=== PATIENT | male | born 1985 | race Two or more races ===

== ENCOUNTER 2021-11-30 11:06 | Inpatient (IN) | payer OTHER, SELFPAY ==
[2021-11-30] VITALS (8 sets, daily range): BP systolic 115–153; BP diastolic 63–94; PULSE 55–87; RESP 16–20; TEMP 36.4–37.1; O2SAT 95–100; BMI 17.3
--- NOTE | ~2021-11-30 | CT_ITS ---
EXAMINATION: CT ABDOMEN AND PELVIS WITH CONTRAST CLINICAL INFORMATION: 36-year-old male with abdominal pain. COMPARISON: None TECHNIQUE: Multidetector volumetric images were obtained from the superior aspect of the liver through the pubic symphysis following administration 85 mL of Omnipaque 350 intravenous contrast. Sagittal and coronal reformatted images were obtained on the technologist's workstation. This CT examination was performed using dose optimization techniques as appropriate, variously including the following: *Automated exposure control *Adjustment of mA and/or kV according to patient size (this includes techniques or standardized protocols for targeted exams where dose is matched to indication/reason for exam; i.e. extremities or head) *Use of iterative reconstruction technique DLP: 183 mGy-cm FINDINGS: Visualized lung bases are well aerated. The liver demonstrates normal size, contour and attenuation. The gallbladder is normal in appearance. The pancreas, spleen and adrenal glands are unremarkable. Prominent single left kidney without hydronephrosis. A right kidney is not visualized. Normal caliber loops of small bowel. The colon is relatively decompressed but demonstrates diffuse circumferential mucosal thickening throughout. Mild colonic diverticulosis also noted. Normal caliber abdominal aorta. No retroperitoneal lymphadenopathy. The bladder is normal in appearance. Normal-sized prostate gland. No gross free pelvic fluid. No inguinal lymphadenopathy. No acute osseous abnormality. CT/CT abdomen pelvis w con IMPRESSION: -Diffuse mucosal thickening of the colon. Findings are nonspecific but most suggestive of colitis, likely infectious or inflammatory. Clinical correlation recommended. -Solitary left kidney. No hydronephrosis. Fleischner guidelines were followed.
--- NOTE | 2021-11-30 11:27 | ED_ITS ---
HPI - Nausea/Vomiting/Diarrhea General Chief complaint: Abdominal Pain Stated complaint: abdominal pain Time Seen by Provider: 11/30/21 11:15 Source: patient Mode of arrival: EMS Limitations: no limitations History of Present Illness MD elicited complaint: nausea and vomiting Onset (ago): hour(s) (5) Description of vomiting: watery Description of diarrhea: watery Associated nausea: Yes Associated abdominal pain: Yes Location of pain: diffuse Pain consistency: constant Quality: cramping Related Data Allergies Allergy/AdvReac Type Severity Reaction Status Date / Time No Known Allergies Allergy Verified 11/30/21 11:24 Review of Systems Verdana 4l Review of Systems: Yes all other systems are reviewed and Verdana 4d are negative Verdana 4l Cardiovascular: Verdana 4d Cardiovascular: Verdana 4d Verdana 4d Reports no additional cardiovascular complaints Verdana 4l Gastrointestinal: Verdana 4d Gastrointestinal: Verdana 4d Verdana 4d Reports abdominal pain and Reports nausea Verdana 4l Neurologic: Verdana 4d Reports system reviewed and no additional complaints, except as documented PMF Social History Social History Advance Directives: No Advance Directives Information Provided: No Physical Exam Verdana 4l Vital Signs: Verdana 4d Verdana 4d Vital Signs: Verdana 4d Verdana 4Bd Last Vital Signs Verdana 4d Configuration Management Advisor New 4d Configuration Management Advisor New 4d Temp 97.7 F 11/30/21 16:10 Configuration Management Advisor New 4d Pulse 71 11/30/21 16:10 Configuration Management Advisor New 4d Resp 16 11/30/21 16:10 BP 134/94 H 11/30/21 16:10 Pulse Ox 95 11/30/21 16:10 BMI result Body Mass Index 17.3 Const: General: alert and acute distress mild Orientation/consciousness: patient oriented x3 HENMT: Head: Yes normal to inspection Face and sinus: Yes normal facial exam Mouth: Normal oral and palatal mucosa present Throat: Yes posterior oropharynx normal Neck: Neck: Yes normal visual inspection Thyroid: Thyroid normal Chest: Chest palpation & inspection: normal inspection of the chest Resp: Effort & Inspection: normal respiratory effort Auscultation: clear to auscultation bilaterally Cardio: Jugular venous distension: no JVD Rate: regular rate Rhythm: regular rhy thm GI: Inspection: Yes normal to inspection Palpation (GI): Soft to palpation, not firm, nontender and no guarding Skin: General skin exam: no rashes or lesions noted, elasticity normal and turgor normal Rashes: no rashes Neuro: General: patient oriented x3 Course Reevaluation(s) Reevaluation #1: BETTER CT SHOWED COLITIS WILL ADMIT FOR OBS MDM - Nausea/Vomiting/Diarrhea Lab Data Result diagrams: 11/30/21 11:32 11/30/21 11:32 Labs: Lab Results 11/30/21 11/30/21 Range/Units 11:32 11:32 WBC 24.9 H (4.8-10.8) X10*3/uL RBC 5.29 (4.60-5.80) X10*6/uL Hgb 17.4 (14.0-18.0) g/dl Hct 51.2 (42.0-52.0) % MCV 96.8 (80.0-98.0) fL MCH 32.9 (27.0-33.0) pg MCHC 34.0 (31.0-36.0) g/dl RDW 12.4 (11.0-16.0) % Plt Count 328 (160-400) X10*3/uL MPV 11.1 (9.4-12.4) fL Immature Gran % (Auto) 0.9 H (0.0-0.4) % Neut % (Auto) 85.0 H (45-73) % Lymph % (Auto) 8.6 L (20-40) % Ransom % (Auto) 4.9 (2-11) % Eos % (Auto) 0.3 (0-4) % Baso % (Auto) 0.3 (0-2) % Lymph # (Auto) 2.1 (1.2-4.9) X10*3/uL Ransom # (Auto) 1.2 (0.1-1.2) X10*3/uL Eos # (Auto) 0.1 (0.0-0.4) X10*3/uL Baso # (Auto) 0.1 (0.0-0.2) X10*3/uL Abs Immat Gran (auto) 0.22 H (0.00-0.03) X10*3/uL Absolute Neuts (auto) 21.2 H (2.0-8.3) x10*3/uL Absolute Nucleated RBC 0.000 (0.0-0.012) X10*3/uL Nucleated RBC % (auto) 0.0 (0.0-0.2) /100WBC Smear Tech's Comments VERIFIED Sodium 144 (135-145) mmol/L Potassium 4.2 (3.3-5.1) mmol/L Chloride 105 (96-108) mmol/L Carbon Dioxide 26 (22-29) mmol/L Anion Gap 17 (12-20) BUN 15 (9-16) mg/dL Creatinine 0.91 (0.5-1.4) mg/dL Estim Creat Clear Calc 57.0 Estimated GFR > 60 Random Glucose 116 H (60-115) mg/dL Calcium 10.7 H (8.4-10.2) mg/dL Total Bilirubin 0.4 (0.0-1.0) mg/dL AST 32 (5-37) U/L ALT 27 (0-40) U/L Alkaline Phosphatase 79 (39-117) U/L Total Protein 8.0 (6.5-8.0) g/dL Albumin 4.8 (3.5-5.0) g/dL Lipase 119 H (8-78) U/L Imaging Data CT scan - abdomen: Radiologist's impression: FINDINGS: There is no intracranial hemorrhage, hematoma, or extra-axial fluid collection.? The ventricles are normal in size. There is no hydrocephalus, edema, or mass effect.? The fuentes-white matter differentiation appears symmetric. There is no acute infarct or mass lesion. An old left basal ganglia infarct is noted. The calvarium appears intact. There is no pneumocephalus or orbital emphysema.? The visualized sinuses and middle ears and mastoid air cells show no significant mucosal thickening. There are no air-fluid levels. CT/CT head for stroke IMPRESSION: No acute intracranial pathology. ? This critical result was discussed with Dr. Sanchez at 2:17 PM hours on 11/30/2021. It was ascertained that the content and urgency of the report was understood at the time of direct communication. Dictated By: PHYLLIS MORA MD Signed By: <Electronically signed by PHYLLIS MORA MD in OV> 11/30/21 1422 DD/ [id number] Discharge Plan Discharge Clinical Impression: Abdominal pain, Vomiting Patient Disposition: Admitted As Inpatient
[2021-11-30] MEDS: 0.9 % Sodium Chloride 1,000 ML 999 ML IVCONT (11:35)
[2021-11-30] MEDS: LORazepam 2 MG/ML VIAL 1 MG IVPUSH (11:36)
[2021-11-30] MEDS: Metoclopramide HCl 10 MG/2 ML VIAL IVPUSH (11:36)
[2021-11-30 11:46] LABS: Basophils Absolute Auto 0.1 X10*3/uL (0.0-0.2); Basophils Percent Auto 0.3 % (0-2); Eosinophils Absolute Auto 0.1 X10*3/uL (0.0-0.4); Eosinophils Percent Auto 0.3 % (0-4); Hematocrit 51.2 % (42.0-52.0); Hemoglobin 17.4 g/dl (14.0-18.0); Imm Gran Abs Auto 0.22 X10*3/uL (0.00-0.03); Imm Gran Pct Auto 0.9 % (0.0-0.4); Lymphocytes Absolute Auto 2.1 X10*3/uL (1.2-4.9); Lymphocytes Percent Auto 8.6 % (20-40); MANUAL DIFF FLAG SCAN; Mean Corpuscular Hemoglobin 32.9 pg (27.0-33.0); Mean Corpuscular Volume 96.8 fL (80.0-98.0); Mean Platelet Volume 11.1 fL (9.4-12.4); Monocytes Absolute Auto 1.2 X10*3/uL (0.1-1.2); Monocytes Percent Auto 4.9 % (2-11); Neutrophils Absolute Auto 21.2 x10*3/uL (2.0-8.3); Platelet Count 328 X10*3/uL (160-400); Red Blood Count 5.29 X10*6/uL (4.60-5.80); Red Cell Distribution Width 12.4 % (11.0-16.0); SCAN SMEAR FLAG 1; White Blood Count 24.9 X10*3/uL (4.8-10.8)
[2021-11-30] MEDS: diphenhydrAMINE HCL 50 MG/ML VIAL 25 MG IVPUSH (11:47)
[2021-11-30 12:10] LABS: Alanine Aminotransferase 27 U/L (0-40); Albumin Level 4.8 g/dL (3.5-5.0); Alkaline Phosphatase 79 U/L (39-117); Anion Gap 17 (12-20); Aspartate Amino Transferase 32 U/L (5-37); Bilirubin Total 0.4 mg/dL (0.0-1.0); Blood Urea Nitrogen 15 mg/dL (9-16); Calcium 10.7 mg/dL (8.4-10.2); Carbon Dioxide 26 mmol/L (22-29); Chloride 105 mmol/L (96-108); Estimated Glomerular Filt Rate > 60; Glucose Random 116 mg/dL (60-115); Lipase 119 U/L (8-78); Potassium 4.2 mmol/L (3.3-5.1); Sodium 144 mmol/L (135-145)
[2021-11-30 12:13] LABS: SLIDE REVIEW VERIFIED
[2021-11-30] MEDS: iohexoL 350 MG/ML 100 ML INFUS..BTL IV (14:55)
[2021-11-30] MEDS: levoFLOXacin/D5W 500 MG/100 ML PIGGYBACK 100 MG IV (16:17)
[2021-11-30] MEDS: 0.9 % Sodium Chloride 1,000 ML 100 ML IVCONT (16:18)
--- NOTE | 2021-11-30 17:01 | P.HPHOSP_ITS ---
History of Present Illness Date of Service: 11/30/21 Chief Complaint: Abdominal pain A 36 years old male coming to the hospital with reported abdominal pain that started 2 days ago and worsened today which is constant, mainly periumbilical, associated with nausea and vomiting but no change in bowel habit. Feeling a lot of chills but did not check his fever. He reports similar episode few years ago that was treated with antibiotics. CT scan the emergency was significant for colitis. Admitted for further eval uation and treatment. Review of Systems Verdana 4l Review of Systems: Verdana 4d Reporting chills and Verdana 4d weakness No chest pain, palpitation No shortness of breath or coughing Abdominal pain associated with nausea or vomiting No urinary symptoms No any rash or wounds Verdana 4d PMFSH Social History Advance Directives: No Advance Directives Information Provided: No Meds Allergies Allergy/AdvReac Type Severity Reaction Status Date / Time No Known Allergies Allergy Verified 11/30/21 11:24 Active Medications: Current Medications Levofloxacin (Levaquin) 500 mg in 100 mls @ 100 mls/hr IV ONCE ONE Stop: 11/30/21 17:09 Last Admin: 11/30/21 16:17 Dose: 100 mls/hr Documented by: Home Medications Medication Instructions Recorded Confirmed Last Taken Type bupropion HCl 1 tab PO BID 11/30/21 11/30/21 Unknown History (smoking deter) 150 mg tablet,12 hr sustained-release (smoking deterrent) mirtazapine 30 mg 1 tab PO BEDTIME 11/30/21 11/30/21 Unknown History tablet Physical Exam Verdana 4l Vital Signs and Narrative: Verdana 4d Verdana 4d Vital Signs: Verdana 4d Verdana 4Bd Last Vital Signs Verdana 4d Chocolatier New 4d Chocolatier New 4d Temp 97.7 F 11/30/21 16:10 Chocolatier New 4d Pulse 71 11/30/21 16:10 Chocolatier New 4d Resp 16 11/30/21 16:10 BP 134/94 H 11/30/21 16:10 Pulse Ox 95 11/30/21 16:10 BMI result Body Mass Index 17.3 Const: Other: Constitutional : Alert, oriented, in mild distress Neck : Normal inspection, Supple Cardiovascular : RRR, S1 S2, no lower extremity edema Respiratory : Good bilateral air entry, no crackles, wheezes or rhonchi Gastrointestinal: soft, guardian, decrease bowel sounds, generalized tenderness with no surgical signs Skin : Warm, Dry Neurological : Alert & oriented x3, No focal deficit Results Labs CBC and Chem 7: 11/30/21 11:32 11/30/21 11:32 Labs: Laboratory Results - last 24 hr 11/30/21 11/30/21 11:32 11:32 MCV 96.8 MCH 32.9 MCHC 34.0 RDW 12.4 Plt Count 328 MPV 11.1 Immature Gran % (Auto) 0.9 H Neut % (Auto) 85.0 H Lymph % (Auto) 8.6 L Dade % (Auto) 4.9 Eos % (Auto) 0.3 Baso % (Auto) 0.3 Lymph # (Auto) 2.1 Dade # (Auto) 1.2 Eos # (Auto) 0.1 Baso # (Auto) 0.1 Abs Immat Gran (auto) 0.22 H Absolute Neuts (auto) 21.2 H Absolute Nucleated RBC 0.000 Nucleated RBC % (auto) 0.0 Smear Tech's Comments VERIFIED Anion Gap 17 Estim Creat Clear Calc 57.0 Estimated GFR > 60 Random Glucose 116 H Calcium 10.7 H Total Bilirubin 0.4 AST 32 ALT 27 Alkaline Phosphatase 79 Total Protein 8.0 Albumin 4.8 Lipase 119 H Imaging Radiologist's Impressions: Impressions Abdomen/Pelvis CT 11/30/21 15:04 IMPRESSION: -Diffuse mucosal thickening of the colon. Findings are nonspecific but most suggestive of colitis, likely infectious or inflammatory. Clinical correlation recommended. -Solitary left kidney. No hydronephrosis. Fleischner guidelines were followed. Assessment and Plan (1) Abdominal pain: Status: Acute (2) Colitis: Status: Acute Plan A 34 years old lady with PMH of drug abuse, anorexia nervosa, depression, post ileostomy who started to complain of abdominal pain today. Colitis Seems infectious in etiology Pending blood culture Start gentle hydration Start IV Levaquin Start with clear liquids History of anxiety Continue mirtazapine and bupropion DVT PPX Lovenox Quality Stroke Does the patient have a stroke diagnosis?: No VTE Prior VTE?: No VTE Risk Level:: Medical - moderate - high VTE Device Contraindication: Treatment Not Indicated VTE Drug Contraindication: N/A - Med Ordered
[2021-11-30] MEDS: Lactated Ringers 1,000 ML 100 ML IVCONT (17:31)
[2021-11-30] MEDS: Enoxaparin Sodium 40 MG/0.4 ML SYRINGE SUBCUT (17:31)
--- NOTE | 2021-11-30 21:14 | PHA.MEDREC ---
Pharmacy Consult ? Medication Reconciliation Pharmacy has completed the medication reconciliation. Spoke with pt
[2021-11-30] MEDS: Mirtazapine 30 MG TABLET PO (22:18)
[2021-12-01] VITALS: RESP 16
[2021-12-01] MEDS: Lactated Ringers 1,000 ML 100 ML IVCONT (04:07)
[2021-12-01 06:00] VITALS: RESP 16
[2021-12-01 06:51] LABS: Hematocrit 44.3 % (42.0-52.0); Hemoglobin 15.1 g/dl (14.0-18.0); Mean Corpuscular HGB Conc 34.1 g/dl (31.0-36.0); Mean Corpuscular Hemoglobin 32.9 pg (27.0-33.0); Mean Corpuscular Volume 96.5 fL (80.0-98.0); Platelet Count 231 X10*3/uL (160-400); Red Blood Count 4.59 X10*6/uL (4.60-5.80); Red Cell Distribution Width 12.6 % (11.0-16.0); White Blood Count 14.7 X10*3/uL (4.8-10.8)
[2021-12-01 07:23] LABS: Anion Gap 12 (12-20); Blood Urea Nitrogen 12 mg/dL (9-16); Calcium 9.6 mg/dL (8.4-10.2); Carbon Dioxide 27 mmol/L (22-29); Chloride 107 mmol/L (96-108); Creatinine Clr Calc Pharmacy 58.9; Estimated Glomerular Filt Rate > 60; Glucose Random 88 mg/dL (60-115); Potassium 4.2 mmol/L (3.3-5.1); Sodium 142 mmol/L (135-145)
[2021-12-01 08:31] VITALS: BP 109/63; PULSE 60; O2SAT 97
[2021-12-01] MEDS: buPROPion HCl XL 150 MG TAB.ER.24H PO (08:32)
[2021-12-01] MEDS: 0.9 % Sodium Chloride Flush 3 ML SYRINGE IVFLUSH (08:33)
--- NOTE | 2021-12-01 11:05 | PC.NURSE ---
pt sleeping, respirations even and unlabored, skin appropriate for ethnicity no vomiting/diarrhea all morning. pt awaiting room assignment
--- NOTE | 2021-12-01 11:19 | P.PNIM_ITS ---
Subjective Subjective Date of Service: 12/01/21 Interval History: the patient was seen and evaluated this morning Laying in bed, feels much better than yesterday Significantly decreased abdominal pain and nausea No reported other overnight events. Systemic review: No fever, chills or weakness No chest pain, palpitation No shortness of breath or coughing Mild abdominal pain, no more nausea or vomiting No urinary symptoms No any rash or wounds Physical Exam Verdana 4l Vital Signs: Verdana 4d Verdana 4d Vital Signs: Verdana 4d Verdana 4Bd Last Vital Signs Verdana 4d Heel Finisher New 4d Heel Finisher New 4d Temp 98.8 F 11/30/21 19:55 Heel Finisher New 4d Pulse 60 12/01/21 08:31 Heel Finisher New 4d Resp 16 12/01/21 06:00 BP 109/63 12/01/21 08:31 Pulse Ox 97 12/01/21 08:31 BMI result Body Mass Index 17.3 Const: Other: Constitutional : Alert, oriented, in mild distress Neck : Normal inspection, Supple Cardiovascular : RRR, S1 S2, no lower extremity edema Respiratory : Good bilateral air entry, no crackles, wheezes or rhonchi Gastrointestinal: soft, guardian, decrease bowel sounds, mild generalized tenderness with no surgical signs Skin : Warm, Dry Neurological : Alert & oriented x3, No focal deficit Objective Data Active Medications Acetaminophen (Acetaminophen 325 Mg Tablet) 650 mg PO Q6H PRN PRN Reason: Pain, Mild (Pain Scale 1-3) Bupropion HCl (Bupropion Hcl Xl 150 Mg Tab.Er.24h) 150 mg PO DAILY [facility] Last Admin: 12/01/21 08:32 Dose: 150 mg Documented by: FÉLIX Enoxaparin Sodium (Enoxaparin Sodium 40 Mg/0.4 Ml Syringe) 40 mg SUBCUT Q24H [facility] Last Admin: 11/30/21 17:31 Dose: 40 mg Documented by: KATHY Lactated Ringer's (Lr) 1,000 mls @ 100 mls/hr IVCONT .Q10H [facility] Last Admin: 12/01/21 04:07 Dose: 100 mls/hr Documented by: LAURA Levofloxacin (Levaquin) 500 mg in 100 mls @ 100 mls/hr IV Q24H [facility] Mirtazapine (Mirtazapine 30 Mg Tablet) 30 mg PO BEDTIME [facility] Last Admin: 11/30/21 22:18 Dose: 30 mg Documented by: LAURA Morphine Sulfate (Morphine Sulfate 4 Mg/Ml Cartridge) 2 mg IVPUSH Q4H PRN; Protocol PRN Reason: Pain, Severe (Pain Scale 7-10) Ondansetron HCl (Ondansetron Hcl 4 Mg/2 Ml Vial) 4 mg IVPUSH Q8H PRN PRN Reason: Nausea and Vomiting Sodium Chloride (0.9 % Sodium Chloride Flush 3 Ml Syringe) 3 ml IVFLUSH QSHIFT [facility] Last Admin: 12/01/21 08:33 Dose: 3 ml Documented by: FÉLIX Labs CBC & Chem 7: 12/01/21 06:20 12/01/21 06:20 Labs: Laboratory Results - last 24 hr 11/30/21 11/30/21 12/01/21 11:32 11:32 06:20 MCV 96.8 96.5 MCH 32.9 32.9 MCHC 34.0 34.1 RDW 12.4 12.6 Plt Count 328 231 D MPV 11.1 11.0 Immature Gran % (Auto) 0.9 H Neut % (Auto) 85.0 H Lymph % (Auto) 8.6 L Waller % (Auto) 4.9 Eos % (Auto) 0.3 Baso % (Auto) 0.3 Lymph # (Auto) 2.1 Waller # (Auto) 1.2 Eos # (Auto) 0.1 Baso # (Auto) 0.1 Abs Immat Gran (auto) 0.22 H Absolute Neuts (auto) 21.2 H Absolute Nucleated RBC 0.000 0.000 Nucleated RBC % (auto) 0.0 0.0 Smear Tech's Comments VERIFIED Anion Gap 17 Estim Creat Clear Calc 57.0 Estimated GFR > 60 Random Glucose 116 H Calcium 10.7 H Total Bilirubin 0.4 AST 32 ALT 27 Alkaline Phosphatase 79 Total Protein 8.0 Albumin 4.8 Lipase 119 H 12/01/21 06:20 MCV MCH MCHC RDW Plt Count MPV Immature Gran % (Auto) Neut % (Auto) Lymph % (Auto) Waller % (Auto) Eos % (Auto) Baso % (Auto) Lymph # (Auto) Waller # (Auto) Eos # (Auto) Baso # (Auto) Abs Immat Gran (auto) Absolute Neuts (auto) Absolute Nucleated RBC Nucleated RBC % (auto) Smear Tech's Comments Anion Gap 12 Estim Creat Clear Calc 58.9 Estimated GFR > 60 Random Glucose 88 Calcium 9.6 D Total Bilirubin AST ALT Alkaline Phosphatase Total Protein Albumin Lipase Assessment and Plan (1) Colitis: Status: Acute Plan A 34 years old lady with PMH of drug abuse, anorexia nervosa, depression, post ileostomy who started to complain of abdominal pain today. Colitis Seems infectious in etiology Pending blood culture Continue gentle hydration Continue IV Levaquin Continue with clear liquids History of anxiety Continue mirtazapine and bupropion DVT PPX Lovenox Quality Stroke Does the patient have a stroke diagnosis?: No VTE Prior VTE?: No VTE Risk Level:: Medical - moderate - high VTE Device Contraindication: Treatment Not Indicated VTE Drug Contraindication: N/A - Med Ordered
[2021-12-01 12:39] VITALS: BP 126/69; PULSE 59; RESP 18; TEMP 36.7; O2SAT 96
[2021-12-01 15:39] VITALS: BP 141/86; PULSE 61; RESP 16; TEMP 37.1; O2SAT 99
--- NOTE | 2021-12-01 15:42 | PC.NURSE ---
Addendum entered by Isamar Osullivan 12/01/21 16:21: dr wilson instructed this rn to have him sign the AMA paperwork no d/c paperwork Original Note: pt reports feeling better and would like to go home, dr wilson aware
--- NOTE | 2021-12-01 16:19 | MHC.CM.PN ---
Information obtained from pt and his spouse, Juliet by phone. Pt states he resides with spouse, is independent with care needs and has no services or medical equipment other than medical marijuana for depression Spouse Juliet provides transportation for pt. Pt states his PCP is an SOCIAL SCIENTIST named Belen from [place]. HCP declined. RUFUS Coker x2, D/C plan: return to home: no services - spouse to transport
--- NOTE | 2021-12-02 07:41 | PM.EVENT ---
Event Note Date of Service: 12/02/21 Event Note: Discharge summary Discharge diagnosis Acute infectious colitis Patient was admitted to the hospital and treated with IV antibiotics and IV fluid. He decided to leave against medical advice before blood cultures are finalized for personal reasons. I explained to him the risk of leaving the hospital before finishing the treatment. He understood and agreed to stay. By the end of the day decided to sign AMA and leave the hospital. Will send oral every focus acid to finish 1 week of antibiotics.
== END 2021-12-01 17:11 | disposition left against medical advice (07) | DRG 249 ==
LOC: HO.ED 16:23 → HO.EDOVER 17:05
PROVIDERS: Admitting Provider Student in an Organized Health Care Education/Training Program; Emergency Provider Emergency Medicine; Visit Provider Student in an Organized Health Care Education/Training Program
DX: A09 Infectious gastroenteritis and colitis, unspecified (principal); F50.00 Anorexia nervosa, unspecified; F17.210 Nicotine dependence, cigarettes, uncomplicated; Z71.6 Tobacco abuse counseling; Z68.1 Body mass index [BMI] 19.9 or less, adult; F41.9 Anxiety disorder, unspecified; Z79.899 Other long term (current) drug therapy
CPT/HCPCS: 36415; 74177; 80048; 80053; 83690; 85025; 85027; 96361; 96374; 96375; 99218; 99284; 99285; J1200; J1650; J1956; J2060; J2765; Q9967